=== PATIENT | male | born 1980 | race Caucasian/White ===

== ENCOUNTER → 2021-02-13 16:05 | Outpatient (BNVA) | payer OTHER, SELFPAY | PROVIDERS: PCP Family Medicine; Referring Provider Family Medicine; Visit Provider Podiatrist Foot & Ankle Surgery | DX: M79.671 Pain in right foot (principal); M79.672 Pain in left foot; M77.32 Calcaneal spur, left foot | CPT/HCPCS: 73650 ==

== ENCOUNTER 2021-06-06 16:14 | Outpatient (CLI) | payer OTHER, SELFPAY ==
--- NOTE | 2021-06-06 17:13 | MR_ITS ---
WS: [id number] MRI RIGHT ANKLE CONTRAST. COMPARISON: 02/13/2021 calcaneus radiograph. Multiplanar, multisequence imaging is performed without contrast. The Achilles tendon is normal size and signal intensity. There is no thickening or thinning of the te ndon. Normal attachment at the posterior calcaneus. No significant amount of fluid in the retrocalcan eal bursa. No Armida syndrome. Normal appearance of the plantar fascia. No significant osteophyte is identified. No marrow edema or fracture. No loose body or osteochondral defect. No muscle atrophy or edema. No accessory muscle. Nor mal signal in the tendons and ligaments. MR/MR ankle RT wo con* [id number] IMPRESSION: 1. Normal MRI of the Achilles tendon. No tear or signal abnormalities. 2. No retrocalcaneal bursitis. 3. No fracture or marrow edema.
== END 2021-06-06 16:15 | disposition home or self-care (01) ==
LOC: RADSHAW 16:18
PROVIDERS: PCP Family Medicine; Visit Provider Podiatrist Foot & Ankle Surgery
DX: M25.571 Pain in right ankle and joints of right foot (principal)
CPT/HCPCS: 73721

== ENCOUNTER → 2021-08-13 00:01 | Outpatient (BNVA) | payer OTHER, SELFPAY | PROVIDERS: PCP Family Medicine; Visit Provider Podiatrist Foot & Ankle Surgery | DX: Z01.818 Encounter for other preprocedural examination (principal); Z20.822 Contact with and (suspected) exposure to COVID-19 | CPT/HCPCS: 87635 ==

== ENCOUNTER 2021-08-17 09:35 | Day surgery (SDC) | payer OTHER, SELFPAY ==
[2021-08-16 13:14] VITALS: BMI 38.7
[2021-08-17] VITALS (22 sets, daily range): BP systolic 109–145; BP diastolic 53–106; PULSE 60–90; RESP 14–18; TEMP 36.2–36.6; O2SAT 93–100
[2021-08-17] MEDS: sodium chloride 0.9% 1,000 ML 30 ML IV (10:00)
[2021-08-17] MEDS: gabapentin 300 mg Capsule PO (10:00)
--- NOTE | 2021-08-17 10:44 | ANES.PREANE2 ---
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 Operation Date: 08/17/21 11:05 Proposed Procedures p Achilles Tendon Repair Foot 03501/29041/m65.28(Right) - Nathaniel Vaughn DPM s [place] Resection right lower ext(Right) - Nathaniel Vaughn DPM Familial anesthetic complications: None Was Beta Estefanía taken within 24 hours: Yes Was Clonidine taken within 24 hours: N/A Last intake: Intake Last Liquid Date 08/17/21 Last Liquid Time 04:00 Last Solid Date 08/16/21 Last Solid Time 19:00 Social No alcohol and No tobacco Exam alert, oriented x 3, clear to auscultation bilaterally and regular rate & rhythm Airway Submandibular: within normal limits Cervical ROM: within normal limits Mallampati: Class III Dentition: full History/ROS No significant complaints Pulmonary Sleep Apnea (S/P UVP ) CV/HEM Hypertension None reported GI None reported Metabolic None reported Musc/skel None reported Neuropsych None reported Anesthetic Plan ASA status: 3 (41 year old male w/ hx of HTN and JACQUES on CPAP s/p UVP) Anesthesia: Anesthesia Evaluation and General Other: We discussed risk and benefits of general anesthesia including PONV, sore throat (sometimes severe), corneal abrasion, positioning and peripheral nerve injuries, life threatening allergic reaction, post operative ICU admission requiring prolonged intubation, stroke, heart attack, , and rare incidences of recall. Patient consents to proceed with general anesthesia. Risk of > 500 ml blood loss (7ml/kg in children): No Medications/Allergies Home Medications Medication Instructions Recorded Confirmed Last Taken Type lisinopril 10 1 tab PO BID 02/13/21 08/17/21 08/16/21 History mg-hydrochlorothiazide 12.5 mg tablet metoprolol succinate 25 mg 25 mg PO DAILY 02/13/21 08/17/21 08/17/21 History tablet,extended release 24 hr rosuvastatin 40 mg tablet 40 mg PO DAILY 02/13/21 08/17/21 08/16/21 History Allergies Allergy/AdvReac Type Severity Reaction Status Date / Time ibuprofen [From Motrin] Allergy rash Verified 08/16/21 13:13 Current Medications Generic Name Dose Route Start Last Admin Trade Name Freq PRN Reason Stop Dose Admin Sodium Chloride 1,000 mls @ 30 mls/hr 08/17/21 09:45 08/17/21 10:00 Sodium Chloride 0.9% IV 08/18/21 09:44 30 mls/hr .Q24H NATALIE Administration PFSH Anesthesia Medical History Hypertension JACUQES (obstructive sleep apnea) Uses CPAP S/P surgery by Dr. Brennan in 2005, patient describes UVP Surgical History S/P UVPP (uvulopalatopharyngoplasty) Patient describes what sounds like a UVP w/ Doctor Brennan in 2005 Social History Smoking and tobacco status: never smoked Data Anesthesia Cardiac Studies: No Data to Display
--- NOTE | 2021-08-17 11:39 | W.PM.OPSUD ---
Surgery/Procedure H&P Update DATE OF PROCEDURE: August 17, 2021 DATE H&P PERFORMED: 08/13/21 CHANGES TO PREVIOUS DOCUMENTATION: None PREOP DIAGNOSIS: Right Armida's deformity. Right Achilles tendinopathy. PLANNED PROCEDURE: Operation Date: 08/17/21 11:05 Proposed Procedures p Achilles Tendon Repair Foot 67114/12514/m65.28(Right) - Nathaniel Vaughn DPM s [place] Resection right lower ext(Right) - Nathaniel Vaughn DPM
--- NOTE | 2021-08-17 12:28 | P.ANES_ITS ---
Anesthesia Procedures Procedure/Date: 08/17/21 Nerve Block ^: Nerve Block 1: Main Anesthesia: general anesthesia Time Out Performed: Yes (0337) Consent: requested by attending/covering physician, from patient, risks and bene fits reviewed and patient agrees to proceed Nerve block location: popliteal Anesthesia monitors applied: pulse oximetry, EKG and BP cuff Nerve block position: supine Anesthetic Used: lidocaine 2% and bupivacaine 0.25% Amount of anesthesia used (mL): 20 Ultrasound used to: recognize landmarks and other (Visualize popliteal nerve) Nerve Stimulator Used?: Yes (Loss of motor response at 0.4mA) Injection: neg aspiration of heme Patient Tolerated Procedure: well Complications: none Additional Comments: After time out sterile prep, using sterile technique, and using real time US guidance for target selection, 4 sitmuplex 21 g needle needle was inserted with real time visualization of needle entry and real time visualization of needle advancement toward intended target. Negative aspiration. LA injected incrementally with negative aspiration every 5 cc and real time US visualization of LA spread throughout procedure. Tolerated well. Image(s) saved.
--- NOTE | 2021-08-17 13:38 | P.OP_ITS ---
Operative Report Date of procedure: August 17, 2021 Pre-op diagnosis: Procedure: Pre-op Diagnosis: Right calcific Achilles tendinosis.? Right Armida's deformity. Post-op diagnosis: same Post-op Findings: Right Achilles tendinosis with mucoid degeneration of midsubstance and intratendinous calcifications.? Right Armida's deformity. Procedure Done: Right Achilles tendon repair CPT code 25927 Right calcaneus Armida's resection CPT code 30735 Implants: Arthrex speed bridge.? 3-0 Vicryl, 3-0 nylon. Specimens removed/disposition: None Pathology: none sent Surgeon: Nathaniel Vaughn D.P.M. Machine Binder Stripper: Rudi Anesthesia: General Estimated blood loss: Less than 5 mL Tourniquet time: 47 minutes IV fluids: None Urine output: None Complications: None Condition: stable Disposition: PACU Brief History: Patient has experienced continuous pain unresponsive to conservative measures to his right Achilles tendon and osseous prominence at her right calcaneus.? He has failed formal physical therapy, home physical therapy, offloading, stretching, night splint, anti-inflammatories and accommodative shoes.? She would like to have the right lower extremity surgically corrected with debridement of Achilles tendon and resection of calcaneal Armida's deformity.? I informed her of risks including pain, bleeding, numbness, infection, bruising, swelling, surgical site dehiscence, Achilles tendon rupture, altered gait and altered mechanics, altered range of motion and strength to the right lower extremity.? Need for further surgical intervention.? Patient was interviewed preoperatively and found to be n.p.o. since midnight.? All questions answered to patient's satisfaction.? He is accompanied by his .? Informed consent signed by the patient myself and the patient. I initialed the right lower extremity.? Patient wishes to proceed, no guarantees written, expressed or implied. Procedure: Under mild sedation the patient was brought to the operating room and while still on the gurney anesthesia was introduced by the anesthesia service, well-padded thigh tourniquet applied to the right thigh.? Patient was then placed prone onto the operative table with appropriate padding and offloading.? Right lower extremity was then scrubbed, prepped and draped utilizing normal aseptic technique.? Right foot and leg was examined a weighted with an Esmarch bandage and the tourniquet inflated to 250 mmHg at the right thigh. Attention was then directed to the Achilles tendon which was palpated noted to be thickened and there was osseous prominence both at the skin as well as proximal to the insertion of the posterior superior lateral aspect of the calcaneal tuberosity.? At the medial border of the Achilles tendon at the area of the watershed coursing distally in a fishhook fashion a full-thickness flap was incised with a #15 blade down to peritenon this was reflected laterally.? There was thickening and dysmorphic peritenon and Achilles tendon interface this was sharply debrided and passed from the operative field.? The Achilles tendon was then reflected off the posterior calcaneus from medial to lateral fashion maintaining a small attachment laterally to maintain length.? Achilles tendon was debrided sharply with a #15 blade and pickups of mucoid degeneration, thickening and disorganized collagen with intratendinous calcifications being sharply excised and passed from operative field.? Once thorough debridement was performed attention was directed to the posterior calcaneus where Armida's deformity was appreciated as well as insertional Achilles calcifications at the lower one third of the posterior calcaneal tuberosity.? A sagittal saw was then utilized to transect the posterior calcaneal Armida's deformity with exostosis with the blade oriented inferior posterior to superior anterior with a bone wedge taken approximately 3 cm x 3 cm x 1 cm this was passed per operative field.? All rough edges were smoothed and sharp edges rounded with a hand rasp.? Intraoperative fluoroscopy confirmed excellent resection of bony overgrowth and noted to be adequate.? Incision site was flushed with copious amounts of sterile saline solution.? Next utilizing standard technique per manufacture recommendation and package insert and Achilles speed bridge was utilized with a total of 4 bone anchors with excellent footprint approximately 1.5 cm apart anchoring the Achilles tendon back to bone with excellent bone to tendon interface and tendon out to length.? Repair was firm and tested intraoperatively and was able to withstand dorsiflexion of the right ankle with excellent integrity.? Incision site was flushed with copious amounts of sterile saline solution.? Dogears at the medial lateral border of the Achilles tendon were transected in an oblique direction.?Peritenon and subcutaneous tissue closed utilizing 3-0 Vicryl.? Skin reapproximated utilizing 3-0 nylon in a horizontal mattress technique.? Incision site was dressed with jumpstart, sterile 4 x 4's, Kerlix and application of well-padded multilayer compressive Roblero splint with ankle in plantarflexion.? Tourniquet was deflated and a prompt hyperemic response was noted to the distal digits of the right foot.? Patient was transferred to the PACU with vital signs stable and vascular status intact.? Following a period of postoperative monitoring he will be discharged home is to remain strict nonweightbearing and elevate her right foot at all times while at rest she has wheelchair, crutches and knee scooter to facilitate this.? She was provided a prescription for hydrocodone to be taken judiciously as needed for pain I advised him to take a baby aspirin this will be 81 mg once daily for DVT prophylaxis.? Follows up next week in podiatry clinic Friday morning.? He was provided my cell phone number will call me with any postoperative questions or concerns.
--- NOTE | 2021-08-17 13:43 | XR_ITS ---
WS: [id number] Exam: XR calcaneus RT min 2V [id number] Date/Time of Exam: 08/17/2021 2:22 PM Reason For Exam: post op Comparison 02/13/2021. Posterior heel spur is been removed. No fracture or dislocation. Osteotomy along the posterior superi or margin of the calcaneus. XR/XR calcaneus RT min 2V [id number] IMPRESSION: 1. Postoperative changes of the calcaneus as noted above.
--- NOTE | 2021-08-17 14:16 | ANE.PACU2 ---
Inpatient post-anesthesia follow up: Airway intact: Yes Vital signs: Temperature 97.4 F Pulse Rate 64 Respiratory Rate 16 Blood Pressure 122/65 Pulse Oximetry 99 Oxygen Delivery Me thod Simple Mask Oxygen Flow Rate 6 Fraction of Inspir ed Oxygen Hydration adequate: Yes Nausea and vomiting: No Pain level: 1 Mental status: Baseline
[2021-08-17] MEDS: ondansetron 2 mg/ML SDV 2 mL 4 MG IVP ×2 (14:51→14:55)
[2021-08-17] MEDS: metoclopramide 5 mg/mL SDV 2 mL 10 MG IVP (15:14)
[2021-08-17] MEDS: dexamethasone 4 mg/mL INJ IVP (15:14)
[2021-08-17] MEDS: famotidine 20 mg/2 mL INJ IVP (15:21)
[2021-08-17] MEDS: scopolamine 1.5 Patch 1 PATCH TRANSDERMA (15:21)
== END 2021-08-17 17:35 | disposition home or self-care (01) ==
PROVIDERS: PCP Family Medicine; Visit Provider Podiatrist Foot & Ankle Surgery
PROC: (CPT 27654; principal; 2021-08-17 10:55)
PROC: (CPT 27654; 2021-08-17 10:55)
DX: M76.61 Achilles tendinitis, right leg (principal); M92.61 Juvenile osteochondrosis of tarsus, right ankle; I10 Essential (primary) hypertension; G47.33 Obstructive sleep apnea (adult) (pediatric)
CPT/HCPCS: 27654; 28120; 73650; C1713; J0690; J1100; J2250; J2405; J2704; J2710; J2765; J3010; J3490; J7030

== ENCOUNTER → 2021-10-07 09:03 | Outpatient (BNVA) | payer OTHER, SELFPAY | PROVIDERS: PCP Family Medicine; Visit Provider Podiatrist Foot & Ankle Surgery | DX: M65.28 Calcific tendinitis, other site (principal); L97.412 Non-pressure chronic ulcer of right heel and midfoot with fat layer exposed | CPT/HCPCS: 73600; 87070; 87075; 87205 ==

== ENCOUNTER 2021-10-08 07:42 | Outpatient (CLI) | payer OTHER, SELFPAY ==
[2021-10-08 08:31] LABS: Basophils # 0.1 10^3/uL (0.0-0.1); Basophils % 0.8 %; Eosinophils # 0.9 10^3/uL (0.0-0.8); Eosinophils % 9.5 %; Hematocrit 43.4 % (42.0-52.0); Hemoglobin 14.4 g/dL (11.7-16.6); Lymphocytes # 2.2 10^3/uL (0.8-4.8); Lymphocytes % 22.2 %; Mean Corpuscular HGB Conc 33.2 g/dL (30.0-36.0); Mean Corpuscular Hemoglobin 29.8 pg (28.0-34.0); Mean Corpuscular Volume 89.7 fl (80-94); Mean Platelet Volume 9.2 fL (7.4-10.4); Monocytes # 0.8 10^3/uL (0.2-0.9); Neutrophils # 5.82 10^3/uL (1.8-7.7); Neutrophils % 59.2 %; Nucleated Red Blood Cells % 0 %; Platelet Count 316 10^3/cmm (130-400); Red Blood Count 4.84 10^6/uL (4.1-5.3); Red Cell Distribution Width 13.4 % (12.1-15.1); White Blood Count 9.9 10^3/uL (4.0-10.0)
[2021-10-08 08:44] LABS: Alanine Aminotransferase 23 U/L (0-41); Albumin Level 4.2 g/dL (3.5-5.2); Alkaline Phosphatase 81 IU/L (40-130); Anion Gap 14.7 (5-19); Aspartate Amino Transferase 25 U/L (0-40); Blood Urea Nitrogen 14 mg/dL (6-20); Calcium 8.4 mg/dL (8.5-10.5); Carbon Dioxide 28 mmol/L (22-29); Chloride 103 mmol/L (98-107); Globulin 2.1 g/dL (1.3-4.6); Glomerular Filtration Rate 105.5 mL/min (90-130); Glucose 121 mg/dL (65-115); Osmolality Calculated 296 mOsm/kg (285-295); Potassium 3.7 mmol/L (3.5-5.1); Sodium 142 mmol/L (136-145); Total Bilirubin 0.6 mg/dL (0.15-1.2); Total Protein 6.3 g/dL (6.6-8.7)
[2021-10-08 08:52] LABS: Erythrocyte Sedimentation Rate 1 mm/hr (0-10)
== END 2021-10-08 07:43 | disposition home or self-care (01) ==
PROVIDERS: PCP Family Medicine; Visit Provider Podiatrist Foot & Ankle Surgery
DX: L97.412 Non-pressure chronic ulcer of right heel and midfoot with fat layer exposed (principal)
CPT/HCPCS: 80053; 85025; 85651; 86140; 87070; 87075; 87077; 87186; 87205

== ENCOUNTER 2022-04-26 10:54 | Day surgery (SDC) | payer OTHER, SELFPAY ==
[2022-04-25 08:47] VITALS: BMI 37.1
[2022-04-26] VITALS (12 sets, daily range): BP systolic 126–157; BP diastolic 76–98; PULSE 65–86; RESP 17–20; TEMP 36.3–36.9; O2SAT 93–99
--- NOTE | 2022-04-26 | XR_ITS ---
WS: [id number] C-arm fluoroscopy lateral right calcaneus, 04/26/2022 Clinical Data: Achilles tendon repair and Armida's resection Comparison: Right ankle, 10/07/2021 Findings: There is a soft tissue deformity adjacent to the posterior right calcaneus marking the surgical entry . XR/XR calcaneus RT min 2V [id number] Impression: Lateral right calcaneus showing surgical entry points.
[2022-04-26] MEDS: sodium chloride 0.9% 1,000 ML 30 ML IV (11:35)
[2022-04-26] MEDS: scopolamine 1.5 Patch 1 PATCH TRANSDERMA (11:36)
[2022-04-26] MEDS: pregabalin 150 mg Capsule 300 MG PO (11:37)
[2022-04-26] MEDS: diphenhydrAMINE 50 mg/mL SDV 1mL 12.5 MG IVP ×2 (11:38→18:18)
[2022-04-26] MEDS: HYDROmorphone 1 mg/mL INJ 1 mL 0.5 MG IVP (13:38)
--- NOTE | 2022-04-26 14:10 | W.PM.OPSUD ---
Surgery/Procedure H&P Update DATE OF PROCEDURE: April 26, 2022 DATE H&P PERFORMED: 03/27/22 CHANGES TO PREVIOUS DOCUMENTATION: None PREOP DIAGNOSIS: Right calcific Achilles tendinosis and Armida's deformity. PLANNED PROCEDURE: Operation Date: 04/26/22 12:40 Proposed Procedures p Achilles tendon repair and Armida's resection all left lower extremity 00982,53442,M65.271,M89.371(Left) - Nathaniel Vaughn DPM s [place] Resection(Left) - Nathaniel Vaughn DPM
[2022-04-26] MEDS: ondansetron 2 mg/ML SDV 2 mL 4 MG IVP ×3 (15:09→18:17)
[2022-04-26 15:11] LABS: Glucose Point of Care 91 mg/dL (70-110)
--- NOTE | 2022-04-26 15:39 | ANES.PREANE2 ---
Pre-Anesthetic Assessment Height/Weight: Height 1.68 m Weight 104.326 kg Temp Pulse Resp BP Pulse Ox O2 Del Method 98.5 F 65 18 129/87 96 04/26/22 11:16 04/26/22 11:16 04/26/22 13:38 04/26/22 11:16 04/26/22 13:38 04/26/22 11:16 Preop Diagnosis: Right calcific Achilles tendinosis and Armida's deformity. Operation Date: 04/26/22 12:40 Proposed Procedures p Achilles tendon repair and Armida's resection all left lower extremity 35446,22912,M65.271,M89.371(Left) - Nathaniel Vaughn DPM s [place] Resection(Left) - Nathaniel Vaughn DPM Familial anesthetic complications: none Was Beta Estefanía taken within 24 hours: Yes Was Clonidine taken within 24 hours: N/A Last intake: Intake Last Liquid Date 04/25/22 Last Liquid Time 23:00 Last Solid Date 04/25/22 Last Solid Time 23:00 Social No alcohol and No tobacco Exam alert, oriented x 3, clear to auscultation bilaterally and regular rate & rhythm Airway Submandibular: within normal limits Cervical ROM: within normal limits Mallampati: Class II Dentition: full Pulmonary Sleep Apnea CV/HEM Hypertension Metabolic Hyperlipidemia and Morbid Obesity Anesthetic Plan ASA status: 2 Anesthesia: General and Regional (specify below) (left pop blk) Medications/Allergies Home Medications Medication Instructions Recorded Confirmed Last Taken Type lisinopril 10 1 tab PO BID 02/13/21 04/25/22 04/25/22 History mg-hydrochlorothiazide 12.5 mg tablet metoprolol succinate 25 mg 25 mg PO DAILY 02/13/21 04/25/22 04/26/22 08:00 History tablet,extended release 24 hr rosuvastatin 40 mg tablet 40 mg PO DAILY 02/13/21 04/25/22 04/25/22 History Allergies Allergy/AdvReac Type Severity Reaction Status Date / Time ibuprofen [From Motrin] Allergy rash Verified 03/27/22 07:57 Current Medications Generic Name Dose Route Start Last Admin Trade Name Freq PRN Reason Stop Dose Admin Diphenhydramine HCl 12.5 mg 04/26/22 11:04 04/26/22 11:38 Diphenhydramine 50 Mg/Ml Sdv 1ml IVP 12.5 mg ONCE PRN Administration PONV Hydromorphone HCl 0.5 mg 04/26/22 11:04 04/26/22 13:38 Hydromorphone 1 Mg/Ml Inj 1 Ml IVP 0.5 mg ONCE PRN Administration For preop pain/anxiety Sodium Chloride 1,000 mls @ 30 mls/hr 04/26/22 11:15 04/26/22 11:35 Sodium Chloride 0.9% IV 04/27/22 11:14 30 mls/hr .Q24H NATALIE Administration Ondansetron HCl 4 mg 04/26/22 11:04 04/26/22 15:09 Ondansetron 2 Mg/Ml Sdv 2 Ml IVP 4 mg ONCE PRN Administration NAUSEA AND VOMITING PFSH Anesthesia Medical History Hypertension JACQUES (obstructive sleep apnea) Uses CPAP S/P surgery by Dr. Brennan in 2005, patient describes UVP Surgical History S/P UVPP (uvulopalatopharyngoplasty) Patient describes what sounds like a UVP w/ Doctor Brennan in 2005 Social History Smoking and tobacco status: never smoked Data Anesthesia Cardiac Studies: No Data to Display Anesthesia Procedures Nerve Block Nerve Block 1: Main Anesthesia: general anesthesia Time Out Performed: Yes Consent: requested by attending/covering physician, from patient, risks and benefits reviewed and patient agrees to proceed Nerve block location: popliteal (left) Anesthesia monitors applied: pulse oximetry, EKG, BP cuff and oxygen Nerve block position: semi sitting Anesthetic Used: ropivicaine 0.5% Amount of anesthesia used (mL): 30 Ultrasound used to: recognize landmarks Nerve Stimulator Used?: Yes Interscalene/Femoral BLK: 4 stimuplex 21 g needle used for position and inplane approach Injection: neg aspiration of heme Patient Tolerated Procedure: well Complications: none
[2022-04-26] MEDS: ceFAZolin 2,000 MG in sodium chloride 0.9% (plus) 50 ML 100 MG IV (16:00)
--- NOTE | 2022-04-26 17:36 | P.OP_ITS ---
Operative Report Pre-op diagnosis: Procedure: Date of procedure: April 26, 2022 Pre-op diagnosis: Left calcific Achilles tendinosis. Left Armida's deformity. Post-op diagnosis: Same Post-op Findings: Left Achilles tendinosis with mucoid degeneration of midsubstance and intratendinous calcifications.? Left Armida's deformity. Procedure Done: Left Achilles tendon repair CPT code 08727. Left calcaneus Armdia's resection CPT code 01963 Implants: Arthrex speed bridge.? 3-0 Vicryl, 3-0 nylon. Specimens removed/disposition: None Pathology: none sent Surgeon: Nathaniel Vaughn D.P.M. Psychology Physician: Nancy Anesthesia: General Estimated blood loss: Less than 5 mL Tourniquet time: 44 minutes IV fluids: None Urine output: None Complications: None Condition: stable Disposition: PACU Brief History: Patient has experienced continuous pain unresponsive to conservative measures to his left Achilles tendon and osseous prominence at his left calcaneus.? He has failed formal physical therapy, home physical therapy, offloading, stretching, night splint, anti-inflammatories and accommodative shoes.? She would like to have the left lower extremity surgically corrected with debridement of Achilles tendon and resection of calcaneal Armida's deformity.? I informed her of risks including pain, bleeding, numbness, infection, bruising, swelling, surgical site dehiscence, Achilles tendon rupture, altered gait and altered mechanics, altered range of motion and strength to the left lower extremity.? Need for further surgical intervention.? Patient was interviewed preoperatively and found to be n.p.o. since midnight.? All questions answered to patient's satisfaction.? He is accompanied by his .? Informed consent signed by the patient myself and the patient.? I initialed the left lower extremity.? Patient wishes to proceed, no guarantees written, expressed or implied. Procedure: Under mild sedation the patient was brought to the operating room and while still on the gurney anesthesia was introduced by the anesthesia service, well-padded thigh tourniquet applied to the left thigh.? Patient was then placed prone onto the operative table with appropriate padding and offloading.? Left lower extremity was then scrubbed, prepped and draped utilizing normal aseptic technique.? Left foot and leg was examined a weighted with an Esmarch bandage and the tourniquet inflated to 250 mmHg at the left thigh. Attention was then directed to the Achilles tendon which was palpated noted to be thickened and there was osseous prominence both at the skin as well as proximal to the insertion of the posterior superior lateral aspect of the calcaneal tuberosity.? At the medial border of the Achilles tendon at the area of the watershed coursing distally in a fishhook fashion a full-thickness flap was incised with a #15 blade down to peritenon this was reflected laterally.? There was thickening and dysmorphic peritenon and Achilles tendon interface this was sharply debrided and passed from the operative field.? The Achilles tendon was then reflected off the posterior calcaneus from medial to lateral fashion maintaining a small attachment laterally to maintain length.? Achilles tendon was debrided sharply with a #15 blade and pickups of mucoid degeneration, thickening and disorganized collagen with intratendinous calcifications being sharply excised and passed from operative field.? Once thorough debridement was performed attention was directed to the posterior calcaneus where Armida's deformity was appreciated as well as insertional Achilles calcifications at the lower one third of the posterior calcaneal tuberosity.? A sagittal saw was then utilized to transect the posterior calcaneal Armida's deformity with exostosis with the blade oriented inferior posterior to superior anterior with a bone wedge taken approximately 3 cm x 3 cm x 1 cm this was passed per operative field.? All rough edges were smoothed and sharp edges rounded with a hand rasp.? Intraoperative fluoroscopy confirmed excellent resection of bony overgrowth and noted to be adequate.? Incision site was flushed with copious amounts of sterile saline solution.? Next utilizing standard technique per manufacture recommendation and package insert and Achilles speed bridge was utilized with a total of 4 bone anchors with excellent footprint approximately 1.5 cm apart anchoring the Achilles tendon back to bone with excellent bone to tendon interface and tendon out to length.? Repair was firm and tested intraoperatively and was able to withstand dorsiflexion of the left ankle with excellent integrity.? Incision site was flushed with copious amounts of sterile saline solution.? Dogears at the medial lateral border of the Achilles tendon were transected in an oblique direction.?Peritenon and subcutaneous tissue closed utilizing 3-0 Vicryl.? Skin reapproximated utilizing 3-0 nylon in a horizontal mattress technique.? Incision site was dressed with jumpstart, sterile 4 x 4's, Kerlix and application of well-padded multilayer compressive Roblero splint with ankle in plantarflexion.? Tourniquet was deflated and a prompt hyperemic response was noted to the distal digits of the left foot.? Patient was transferred to the PACU with vital signs stable and vascular status intact.? Following a period of postoperative monitoring he will be discharged home is to remain strict nonweightbearing and elevate her left foot at all times while at rest she has wheelchair, crutches and knee scooter to facilitate this.? She was provided a prescription for hydrocodone to be taken judiciously as needed for pain I advised him to take a baby aspirin this will be 81 mg once daily for DVT prophylaxis.? Follow-up scheduled next week in podiatry clinic Friday morning.? He was provided my cell phone number will call me with any postoperative questions or concerns.
[2022-04-26] MEDS: hetastarch 30 GM/500 ML PREMIX IV (18:52)
[2022-04-26] MEDS: naloxone 0.4 mg/ml SDV 0.1 MG IVP ×2 (19:43→19:50)
--- NOTE | 2022-04-26 19:44 | SUR.PHASEII ---
1943-patient has post op n/v. Treating with medications as ordered by Dr Casillas. Will continue to monitor patient.
--- NOTE | 2022-04-27 08:42 | ANE.PACU2 ---
Inpatient post-anesthesia follow up: Airway intact: Yes Vital signs: Temperature 97.4 F Pulse Rate 86 Respiratory Rate 17 Blood Pressure 128/89 Pulse Oximetry 95 Oxygen Delivery Me thod Room Air Oxygen Flow Rate 2 Fraction of Inspir ed Oxygen Hydration adequate: Yes Nausea and vomiting: Yes Pain level: 1 Mental status: Baseline Additional Comments: Lots of PONV (Zofran, benadryl, decadron, scope patch, hespan...finally narcan)
== END 2022-04-26 20:11 | disposition home or self-care (01) ==
PROVIDERS: PCP Family Medicine; Visit Provider Podiatrist Foot & Ankle Surgery
PROC: (CPT 27654; principal; 2022-04-26 12:40)
PROC: (CPT 27654; 2022-04-26 12:40)
DX: M65.271 Calcific tendinitis, right ankle and foot (principal); M89.371 Hypertrophy of bone, right ankle and foot; G47.30 Sleep apnea, unspecified; I10 Essential (primary) hypertension; E78.5 Hyperlipidemia, unspecified; E66.01 Morbid (severe) obesity due to excess calories; G47.33 Obstructive sleep apnea (adult) (pediatric)
CPT/HCPCS: 27654; 28118; 36416; 73650; 76000; 82962; C1713; J0690; J1100; J1170; J1200; J2310; J2370; J2405; J2704; J2710; J2795; J3010; J3490; J7030

== ENCOUNTER 2025-02-03 14:11 | Emergency (ER) | payer OTHER, SELFPAY ==
--- OUTSIDE RECORDS SUMMARY | 2025-02-03 14:16 | XMS_ITS | Clinical Summary ---
Author Organization [facility] Address [address] [place] [address] Care Team Providers Care Assembler Knife Name Role Phone Tyson Banuelos DO Primary Care Provider [phone] Allergies Active Allergy Reactions Criticality Noted Date Comments Ibuprofen Rash Low 04/29/2011 Medications mometasone (NASONEX) 50 mcg/Actuation Both Nostril [place] daily. Ac tive Active Problems No known active problems Family History Medical History Relation Name Comments Heart Disease Father Cancer Maternal Aunt Diabetes Maternal Aunt Heart Disease Maternal Aunt Cancer Maternal Uncle Diabetes Maternal Uncle Heart Disease Maternal Uncle Stroke Maternal Uncle Colon Cancer Mother Hypertension Mother Osteoporosis Mother Diabetes Paternal Aunt Diabetes Paternal Uncle Relation Name Status Comments Father Maternal Aunt Maternal Uncle Mother Paternal Aunt Paternal Uncle Social History Tobacco Use Types Packs/Day Years Used Date Smoking Tobacco: Never Smokeless Tobacco: Never Alcohol Use Standard Drinks/Week Comments No 0 (1 standard drink = 0.6 oz pur e alcohol) Sex and Gender Information Value Date Recorded Sex Assigned at Not on file 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 Gender Identity Not on file Sexual Orientation Not on file Occupation Industry Job Start Date Job End Date Not on file Not on file Not on file Not on file Last Filed Vital Signs Vital Sign Reading Time Taken Comments Blood Pressure 151/98 06/24/2011 3:46 PM BUSINESS EXECUTIVE Pulse 86 06/24/2011 3:46 PM BUSINESS EXECUTIVE Temperature - - Respiratory Rate - - Oxygen Saturation - - Inhaled Oxygen Concentration - - Weight 98.4 kg (217 lb) 06/24/2011 3:43 PM BUSINESS EXECUTIVE Height 167.6 cm (5' 6 ) 06/24/2011 3:43 PM BUSINESS EXECUTIVE Body Mass Index 35.02 06/24/2011 3:43 PM BUSINESS EXECUTIVE Plan of Treatment Health Maintenance Due Date Last Done Comments DTAP/TDAP/TD VACCINES (1 - Tdap) 1997 HEPATITIS B VACCINES (1 of 3 - 19+ 3-dose series) 1997 COLORECTAL SCREENING 2023 Colorectal Cancer Screening 2023 FIT-DNA Q 3 years 2023 FIT/FOBT Q 1 year 2023 Flex Sig/CT Colonography Q 5 years 2023 INFLUENZA VACCINE (#1) 2024 HPV VACCINES Aged Out No longer eligi ble based on patient's age to complete this topic Insurance [facility] Care Teams Assembler Knife Relationship Specialty Start Date End Date Tyson Banuelos DO [address] [phone] PCP - General Family Practice 04/19/11
--- OUTSIDE RECORDS SUMMARY | 2025-02-03 14:16 | XMS_ITS | Clinical Summary ---
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
[2025-02-03 14:18] VITALS: BP 115/78; PULSE 66; TEMP 36.6; O2SAT 98
--- NOTE | 2025-02-03 14:24 | XR_ITS ---
WS: [id number] XR chest 1V portable [id number] REASON FOR EXAM: short of breath FINDINGS: The heart and the mediastinum are within normal limits. Calcified granulomatous disease bilaterally. No acute pulmonary parenchymal or pleural abnormality. XR/XR chest 1V portable [id number] IMPRESSION: No acute chest abnormality.
--- NOTE | 2025-02-03 14:25 | ECG_ITS ---
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 Measurements Intervals Lerna Rate: 64 P: 20 SD: 171 QRS: 26 QRSD: 102 T: 47 QT: 421 QTc: 436 Interpretive Statements SINUS RHYTHM INTERPRETATION BASED ON A DEFAULT AGE OF 40 YEARS No previous ECG available for comparison Electronically Signed On 02-05-2025 20:25:38 CDT by Radha Parker M.D. [email or web address] [id number]
--- NOTE | 2025-02-03 14:31 | W.ED.URI ---
HPI - URI/Sore Throat General: Chief Complaint: Upper Respiratory Infection Stated Complaint: Hard To Breath Time Seen by Provider: 02/03/25 14:13 History of Present Illness: Patient is a 44-year-old male with history of JACQUES status post UP VV, presents to the emergency room with shortness of breath, now white sputum production, choking sensation recently due to coughing, x 2 weeks. Patient was initially seen by primary care provider 10 days ago, and placed on azithromycin and prednisone. He returned to urgent care on Friday, 1 day ago for his shortness of breath, gagging, choking, white sputum production. He has not had any fevers. His recent COVID test was negative. Pertinent past history: other (JACQUES, nonsmoker) Onset (ago): week(s) (2) Associated symptoms: Deny abdominal pain, chills, chest pain, fever(s), nausea or vomiting Related Data Home Medications ?Medication ?Instructions ?Recorded ?Confirmed lisinopril 10 1 tab PO BID 02/13/21 07/31/22 mg-hydrochlorothiazide 12.5 mg tablet metoprolol succinate 25 mg 25 mg PO DAILY 02/13/21 07/31/22 tablet,extended release 24 hr rosuvastatin 40 mg tablet 40 mg PO DAILY 02/13/21 07/31/22 Previous Rx's ?Medication ?Instructions ?Recorded Cam Boot to the left #1 ea 05/16/22 benzonatate 200 mg capsule 200 mg PO BID PRN cough #30 caps 02/03/25 methylprednisolone 4 mg tablets in See Rx Instructions PO .COMPLEX 02/03/25 a dose pack (Medrol (Praveen)) #21 ea promethazine-phenylephrine 6.25 5 ml PO Q6H PRN cough #473 mL 02/03/25 mg-5 mg/5 mL oral syrup Allergies Allergy/AdvReac Type Severity Reaction Status Date / Time ibuprofen (From Motrin) Allergy rash Verified 02/03/25 14:21 Review of Systems General: Reports: 10 or more systems reviewed and unremarkable except in HPI and below Const: Denies: fever(s) or chills Eyes: Denies: change in vision Card: Denies: chest pain or palpitations Resp: Reports: dyspnea, productive cough and wheezing GI: Denies: abdominal pain, nausea or vomiting : Denies: flank pain Musc: Reports: extremity pain, extremity swelling and deformity Skin/Breast: Reports: surgical incision; Denies: rash Neuro: Denies: numbness in extremities, sensory changes or frequent falls Psych: Denies: suicidal ideation Jackson/Lymph: Denies: easy bruising PFSH ED PFSH: Medical History (Updated 02/03/25 @ 15:35 by ZECHARIAH Hoyt) Hypertension JACQUES (obstructive sleep apnea) Uses CPAP S/P surgery by Dr. Brennan in 2005, patient describes UVP Surgical History S/P UVPP (uvulopalatopharyngoplasty) Patient describes what sounds like a UVP w/ Doctor Brennan in 2005 Social History Smoking and tobacco/nicotine status: never used tobacco/nicotine Physical Exam Const: COMMON NORMALS: no acute distress, average body habitus, patient oriented x3, no limitations, alert and well nourished HENMT: COMMON NORMALS: normocephalic, atraumatic, TM's normal bilaterally and Normal external nose present HEAD & SCALP: normocephalic and atraumatic FACE & SINUS: normal facial exam, sinuses nontender, face symmetric and normal transillumination of sinuses NOSE: Normal external nose present and Normal nares present TYMPANIC MEMBRANE: TM's normal bilaterally MOUTH: Normal oral and palatal mucosa present, lip normal and tongue normal; no drooling Eye: COMMON NORMALS: Equal, round and reactive pupils present, EOMs intact bilaterally, conjunctivae normal and no scleral icterus CONJUNCTIVA: Yes conjunctivae normal PUPIL: Yes Equal, round and reactive pupils present Lymph: LYMPHATIC: no lymphadenopathy noted Resp: COMMON NORMALS: normal respiratory effort, No retractions and No use of accessory muscles EFFORT & INSPECTION: Yes able to speak in complete sentences AUSCULTATION: wheezes expiratory wheezes and scattered wheezes Cardio: COMMON NORMALS: regular rate and regular rhythm RATE: regular rate RHYTHM: regular rhythm GI: COMMON NORMALS: Normal to inspection, nondistended, normoactive bowel sounds present, Soft to palpation and non-tender PALPATION: Yes Soft to palpation : COMMON NORMALS: Yes no CVA tenderness BLADDER/KIDNEY EXAM: Yes no CVA tenderness Back/Pelvis: COMMON NORMALS: no CVA tenderness Extremity: COMMON NORMALS: normal to inspection, full ROM and capillary refill normal Neuro: COMMON NORMALS: patient oriented x3 SENSORIUM/ORIENTATION: Yes alert Psych: COMMON NORMALS: mental status grossly normal, Normal thought process present and cooperative THOUGHT PROCESS: Normal thought process present Skin: COMMON NORMALS: no rashes or lesions noted and no wounds GENERAL SKIN EXAM: no rashes or lesions noted Course Reevaluation(s): Reevaluation #1: Patient is improved with breath sounds clear after aerosol therapy on DuoNeb. He states that he does feel better with his breathing. Vital Signs: Vital signs: Vital Signs Temperature 97.8 F 02/03/25 14:18 Pulse Rate 71 02/03/25 16:26 Respiratory Rate 16 02/03/25 15:45 Blood Pressure 112/74 02/03/25 16:26 Pulse Oximetry 99 02/03/25 16:26 Oxygen Delivery Me thod Room Air 02/03/25 15:45 MDM - URI/Sore Throat Medical Decision Making Patient is 44-year-old gentleman with 2 weeks of shortness of breath, rigorous coughing, status post azithromycin and prednisone that presents to the ED. He has a difficult time sleeping due to shortness of breath. He has not had any chest discomfort with this. Chest x-ray is benign. On my view, chest x-ray does appear to have central chest congestion. Will give aerosol treatment dexamethasone. Medical Records I reviewed the patient's medical records. Lab Data I reviewed the patient's lab results. Radiology Impressions Chest X-Ray 02/03/25 14:24 IMPRESSION: No acute chest abnormality. All radiology interpretation(s) finalized by discharge ED provider radiology interpretation(s): No acute findings. On my view, central congestion EKG Data EKG 1: Interpretation: Normal sinus rhythm, normal axis, no ST segment elevation, QTc 431 ms Discharge Plan Discharge Patient Disposition: Home Clinical Impression: Bronchitis, Viral infection, Post-viral cough syndrome Condition: Stable Prescriptions: New methylprednisolone [Medrol (Praveen)] 4 mg tablets,dose pack See Rx Instructions .ROUTE .COMPLEX Qty: 21 0RF Rx Instructions: for 6 days benzonatate 200 mg capsule 200 mg PO BID PRN (Reason: cough) Qty: 30 0RF promethazine-phenylephrine 6.25-5 mg/5 mL syrup 5 ml PO Q6H PRN (Reason: cough) Qty: 473 0RF No Action metoprolol succinate 25 mg tablet extended release 24 hr 25 mg PO DAILY lisinopril-hydrochlorothiazide 10-12.5 mg tablet 1 tab PO BID rosuvastatin 40 mg tablet 40 mg PO DAILY (DME) Cam Boot to the left See Rx Instructions .Route .MEDSUPPLY Qty: 1 0RF Rx Instructions: As directed Discharge Orders: Discharge ED (Routine); Ordered 02/03/25 Ordered By: Sunshine Hou Referrals: Chema Barbosa MD [Primary Care Provider, Family Practice] Discharge Diet: Usual diet Discharge Activity: Resume usual activity Patient Instructions: Acute Bronchitis (ED), Acute Cough (ED), Patient Portal & Sin Instructions Activity Restrictions/Additional Instructions: Cough medicine, Medrol Dosepak, and cough syrup that is prescription have all been sent to your pharmacy. Please utilize as directed. Start your Medrol Dosepak in AM. Return to ED if you have further issues with paroxysmal cough?this is the type of cough you are describing. If your shortness of breath gets worse, return to ED, or fever greater 100.4 ?F. Please continue to wear your CPAP as you are. 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
[2025-02-03 14:33] VITALS: BP 121/62; PULSE 71; RESP 16; O2SAT 98
[2025-02-03 15:27] VITALS: BP 121/62; PULSE 75; RESP 18; O2SAT 96
[2025-02-03 15:45] VITALS: PULSE 66; RESP 16; O2SAT 98
[2025-02-03 16:26] VITALS: BP 112/74; PULSE 71; O2SAT 99
== END 2025-02-03 16:27 | disposition home or self-care (01) ==
PROVIDERS: Emergency Provider Physician Assistant; PCP Family Medicine
DX: J40 Bronchitis, not specified as acute or chronic (principal); B34.9 Viral infection, unspecified; R05.9 Cough, unspecified; I10 Essential (primary) hypertension
CPT/HCPCS: 71045; 93005; 94640; 96372; 99284; J1100; J9999